=== PATIENT | female | born 1945 | race Caucasian/White ===

== ENCOUNTER 2022-01-23 10:00 | Outpatient (CLI) | payer MEDICARE, OTHER | END 2022-01-23 10:01 | disposition home or self-care (01) | LOC: CSHULT 10:00 | PROVIDERS: ATTEND Internal Medicine Nephrology | DX: I13.10 Hypertensive heart and chronic kidney disease without heart failure, with stage 1 through stage 4 chronic kidney disease, or unspecified chronic kidney disease (principal); N18.2 Chronic kidney disease, stage 2 (mild); C64.9 Malignant neoplasm of unspecified kidney, except renal pelvis; I25.10 Atherosclerotic heart disease of native coronary artery without angina pectoris; N39.0 Urinary tract infection, site not specified; E78.5 Hyperlipidemia, unspecified; Z90.5 Acquired absence of kidney; N28.1 Cyst of kidney, acquired; I70.1 Atherosclerosis of renal artery | CPT/HCPCS: 76770 ==

== ENCOUNTER 2024-02-19 12:09 | Outpatient (CLI) | payer MEDICARE | END 2024-02-19 12:10 | disposition home or self-care (01) | LOC: CSHCT 12:09 | PROVIDERS: ATTEND Family Medicine | DX: I65.23 Occlusion and stenosis of bilateral carotid arteries (principal); M79.89 Other specified soft tissue disorders | CPT/HCPCS: 70496; 70498; 82565 ==

== ENCOUNTER 2024-03-01 11:44 | Outpatient (CLI) | payer MEDICARE | END 2024-03-01 11:45 | disposition home or self-care (01) | LOC: CSHULT 11:44 | PROVIDERS: ATTEND Family Medicine | DX: E04.2 Nontoxic multinodular goiter (principal); E04.1 Nontoxic single thyroid nodule | CPT/HCPCS: 76536 ==

== ENCOUNTER 2024-03-17 13:32 | Outpatient (CLI) | payer MEDICARE ==
[~2024-03-17 13:32] MED LIST: Magnevist 469MG/ML 20 ML VIAL ONE
== END 2024-03-17 13:33 | disposition home or self-care (01) ==
LOC: CSHMRI 13:32
PROVIDERS: ATTEND Family Medicine
DX: G93.89 Other specified disorders of brain (principal); E23.7 Disorder of pituitary gland, unspecified
CPT/HCPCS: 36415; 70553; 82565

== ENCOUNTER 2024-04-13 15:32 | Outpatient (CLI) | payer MEDICARE | END 2024-04-13 15:33 | disposition home or self-care (01) | LOC: CSHMRI 15:32 | PROVIDERS: ATTEND Family Medicine | DX: M54.2 Cervicalgia (principal); G89.29 Other chronic pain; M48.02 Spinal stenosis, cervical region | CPT/HCPCS: 72141 ==

== ENCOUNTER → 2024-04-28 | Outpatient (CLI) | payer MEDICARE | LOC: CSHMRI 14:21 | PROVIDERS: ATTEND Nurse Practitioner Family | DX: M47.26 Other spondylosis with radiculopathy, lumbar region (principal); N28.89 Other specified disorders of kidney and ureter; M51.16 Intervertebral disc disorders with radiculopathy, lumbar region; M43.16 Spondylolisthesis, lumbar region; M48.061 Spinal stenosis, lumbar region without neurogenic claudication; M43.8X6 Other specified deforming dorsopathies, lumbar region | CPT/HCPCS: 72148 ==

== ENCOUNTER 2024-05-10 12:39 | Outpatient (CLI) | payer MEDICARE | END 2024-05-10 12:40 | disposition home or self-care (01) | LOC: CSHCT 12:39 | PROVIDERS: ATTEND Nurse Practitioner Family | DX: R93.89 Abnormal findings on diagnostic imaging of other specified body structures (principal); N28.89 Other specified disorders of kidney and ureter | CPT/HCPCS: 36415; 74170; 82565 ==

== ENCOUNTER 2025-02-16 15:44 | Outpatient (CLI) | payer MEDICARE | END 2025-02-16 15:45 | disposition home or self-care (01) | LOC: CSHULT 15:44 | PROVIDERS: ATTEND Family Medicine | DX: E04.2 Nontoxic multinodular goiter (principal) | CPT/HCPCS: 76536 ==